=== PATIENT | female | born 1995 | race Caucasian/White ===

== ENCOUNTER 2019-03-27 09:02 | Emergency (ER) | payer MEDICAID ==
[~2019-03-27] VITALS: Ht 160 cm; Wt 66.7 kg
[2019-03-27 09:14] VITALS: BP 95/59; Ht 160 cm; Wt 66.7 kg
== END 2019-03-27 09:53 | disposition home or self-care (01) ==
LOC: ED 09:02
DX: A46 Erysipelas (principal); Z91.048 Other nonmedicinal substance allergy status